=== PATIENT | female | born 1955 | race Caucasian/White ===

== ENCOUNTER 2019-05-03 12:49 | Emergency (ER) | payer OTHER ==
[2019-05-03 13:26] VITALS: BP 127/66
--- NOTE | 2019-05-03 13:31 | UC ---
Eye Complaint HPI - HPI Summary HPI Summary: 63 yo female presents with RIGHT eye issue. She tells me that she has a history of mild floaters in her right eye. Yesterday she noticed a significant increase in the amount of floaters in her right eye. She was also having some flashes of bright light out the lateral aspect of the eye. Today she feels that there are blurry lines in the eye and she has noticed some flashes of light again today. She wears glasses, but has not seen an eye doctor in many years. She denies injury to the eye, headache, dizziness, or eye pain. - History of Current Complaint Chief Complaint: Carla Stated Complaint: RT EYE Time Seen by Provider: 05/03/19 13:26 Hx Obtained From: Patient Onset/Duration: Sudden Onset Severity Currently: None Pain Intensity: 0 - Allergies/Home Medications Allergies/Adverse Reactions: Allergies Allergy/AdvReac Type Severity Reaction Status Date / Time amoxicillin Allergy Hives Verified 05/03/19 13:26 Home Medications: Home Medications Acetaminophen [Arthritis Pain Relief] 1,300 mg PO BID 05/03/19 [History Confirmed 05/03/19] Albuterol HFA INHALER* [Ventolin HFA Inhaler*] 2 puff INH DAILY PRN 05/03/19 [ History Confirmed 05/03/19] Anastrozole [Arimidex] 1 tab PO DAILY 05/03/19 [History Confirmed 05/03/19] Aspirin 81 mg PO DAILY 05/03/19 [History Confirmed 05/03/19] Atorvastatin* [Lipitor*] 80 mg PO 1700 05/03/19 [History Confirmed 05/03/19] Biotin 1 mg PO DAILY 05/03/19 [History Confirmed 05/03/19] Calcium Carb/Vitamin D3/Vit K1 [Calcium + D Soft Chewable Tab] 1 tab PO BID [History Confirmed 05/03/19] Famotidine 10 mg PO DAILY 05/03/19 [History Confirmed 05/03/19] Fluticasone Propionate [Flonase Allergy Relief] 1 spray INH DAILY 05/03/19 [ History Confirmed 05/03/19] Lactase [Dairy Digest] 1 tab PO DAILY 05/03/19 [History Confirmed 05/03/19] Loratadine [Claritin] 10 mg PO DAILY 05/03/19 [History Confirmed 05/03/19] Metoprolol Tartrate [Lopressor] 25 mg PO BID 05/03/19 [History Confirmed ] Sertraline HCl [Zoloft] 200 mg PO DAILY 05/03/19 [History Confirmed 05/03/19] Trazodone HCl 125 mg PO QPM PRN 05/03/19 [History Confirmed 05/03/19] PMH/Surg Hx/FS Hx/Imm Hx Endocrine History: Dyslipidemia Cardiovascular History: Cardiac Disease, Hypertension GI/ History: Gastroesophageal Reflux Psychological History: Anxiety, Depression - Surgical History Surgical History: Yes Surgery Procedure, Year, and Place: LEFT BREAST LUMPECTOMY 2013,2016 LEFT BREAST BIOPSY. cardiac stent 2008 - Family History Known Family History: Positive: Cardiac Disease, Hypertension - Social History Lives: With Family Alcohol Use: None Substance Use Type: None Smoking Status (MU): Never Smoked Tobacco Review of Systems All Other Systems Reviewed And Are Negative: Yes Constitutional: Positive: Negative Skin: Positive: Negative Eyes: Positive: Other - Right eye flashes and floaters ENT: Positive: Negative Respiratory: Positive: Negative Cardiovascular: Positive: Negative Neurovascular: Positive: Negative Neurological: Positive: Negative Psychological: Positive: Negative Physical Exam - Summary Physical Exam Summary: GENERAL: NAD. WDWN. No pain distress. SKIN: No rashes, sores, lesions, or open wounds. HEENT: Head: AT/NC Eyes: EOM intact. PERRLA. Conjunctiva clear without inflammation or discharge. Nose: Nasal mucosa pink and moist. NTTP maxillary and frontal sinus. CHEST: CTAB. No r/r/w. No accessory muscle use. Breathing comfortably and in no distress. CV: RRR. Without m/r/g. Pulses intact. Cap refill <2seconds NEURO: Alert. PSYCH: Age appropriate behavior. Triage Information Reviewed: Yes Vital Signs: Initial Vital Signs Temp 98.5 F 05/03/19 13:18 Pulse 58 05/03/19 13:18 Resp 18 05/03/19 13:18 BP 127/66 05/03/19 13:18 Pulse Ox 97 05/03/19 13:18 Vital Signs Reviewed: Yes Eye Complaint Course/Dx - Course Course Of Treatment: Her symptoms are concerning for a retinal detachment. I called Dr. Herrera of ophthalmology and they are able to see pt at 2:15pm today. Discussed this with pt and she will attend this appt today for further eval and treatment. - Differential Dx/Diagnosis Provider Diagnosis: Vitreous floaters of right eye Discharge - Sign-Out/Discharge Documenting (check all that apply): Patient Departure All imaging exams completed and their final reports reviewed: No Studies - Discharge Plan Condition: Stable Disposition: HOME Referrals: Rosalie Babin MD [Primary Care Provider] - Justen Herrera MD [Medical Doctor] - 05/03/19 2:15 pm Additional Instructions: Your symptoms sounds like you may have a retinal detachment. I have made you an appointment with Dr. Herrera at the address below. He can see you at 2:15pm today. - Billing Disposition and Condition Condition: STABLE Disposition: Home
== END 2019-05-03 13:41 | disposition home or self-care (01) ==
LOC: UCEAST 12:49
DX: H43.391 Other vitreous opacities, right eye (principal); K21.9 Gastro-esophageal reflux disease without esophagitis; E78.5 Hyperlipidemia, unspecified; I10 Essential (primary) hypertension; F41.9 Anxiety disorder, unspecified; F32.9 Major depressive disorder, single episode, unspecified
CPT/HCPCS: 99211; G0463

== ENCOUNTER 2019-05-27 06:46 | Inpatient (IN) | payer OTHER ==
--- NOTE | 2019-05-24 18:43 | HP ---
HISTORY AND PHYSICAL: DATE OF ADMISSION/SURGERY: 05/27/19 DATE OF OFFICE VISIT: 05/24/19 SURGEON: Ping Reyes MD.* (DICTATED BY VANDANA CERNA) PROCEDURE: Left total knee arthroplasty. CHIEF COMPLAINT: Left knee pain. HISTORY OF PRESENT ILLNESS: Mrs. Bowen is a 63-year-old female with continued complaints of left knee pain. She has failed conservative treatment and elected to proceed with a left total knee arthroplasty. PAST MEDICAL HISTORY: 1. History of an FL. 2. Coronary artery disease. 3. Anxiety. 4. Depression. 5. History of breast cancer. 6. Hypertension. 7. Asthma. 8. IBS. PAST SURGICAL HISTORY: 1. Stent placement. 2. Rotator cuff repair. 3. Right knee arthroscopy. 4. Lumpectomy. CURRENT MEDICATIONS: 1. Aspirin 81 mg a day. 2. Arimidex 1 mg a day. 3. Calcium with vitamin D. 4. Claritin. 5. Flonase. 6. Lipitor 80 mg at bedtime. 7. Metoprolol 25 mg twice a day. 8. ProAir inhaler. 9. Zoloft 100 mg 2 tabs daily. 10. Trazodone 50 mg at bedtime. 11. Famotidine 40 mg a day. 12. Tylenol twice a day. 13. Atorvastatin calcium 80 mg a day. 14. Lomotil 2.5/0.025 every 4 hours as needed. ALLERGIES: AMOXICILLIN and LACTOSE. FAMILY HISTORY: Cancer, Parkinson disease, and stroke. SOCIAL HISTORY: She is a 63-year-old female. She lives alone. She does not smoke or use drugs. REVIEW OF SYSTEMS: A complete 14-point review of systems was reviewed with the patient. It was positive for some occasional palpitation. She denies history of DVT, PE, hepatitis, HIV, or anesthesia problems. PHYSICAL EXAMINATION GENERAL: She is well developed, well nourished, in no acute distress. VITAL SIGNS: She stands 5 feet 3 inches tall, weighs 199 pounds. Her blood pressure is 144/86, heart rate 60. HEENT: Normocephalic, atraumatic. NECK: Supple. No palpable lymph nodes. PULMONARY: Lungs are clear to auscultation bilaterally. CARDIO: Regular rate and rhythm. Strong S1, S2. ABDOMEN: Soft, nontender, nondistended. NEUROLOGICAL: She is alert and oriented x3. MUSCULOSKELETAL: Left lower extremity, the skin is intact. There are no open wounds or abrasions. There is a moderate effusion of the left knee joint. There is tenderness along the medial joint line. Range of motion is 5 to 120 degrees of flexion with extensive patellofemoral crepitus. Her calf is soft and nontender. She is able to dorsiflex and plantar flex and has 2+ dorsalis pedis pulse. ASSESSMENT AND PLAN: Ms. Bowen is a 63-year-old female with end-stage osteoarthritis of the left knee. She has failed conservative treatment and elected to proceed with a left total knee arthroplasty. The surgery is scheduled for 05/27/[address] Reyes discussed the risks and benefits of the surgery at today's visit and all of her questions were answered. She will follow up with Dr. Reyes 2 weeks after the surgery. Postoperatively, we will place her on Eliquis as well as her 81 mg aspirin for DVT prophylaxis. VANDANA CERNA [id number]/[facility] #: [id number] MTDFrank
[~2019-05-27 06:46] MED LIST: Tranexamic Acid 1,000 MG in NS 0.9% 50 ML* (outpatient use) IV SCH
--- OUTSIDE RECORDS SUMMARY | 2019-05-27 06:49 | XMS REPORT | Continuity of Care Document ---
:1955 External Reference #:[id number] Author Name Josefa Randall Care Team Providers Name Role Phone Rosalie Babin MD Primary Care Physician Unavailable Payers Date Identification Numbers Payment Provider Subscriber Policy Number: [id number] [employer] Name: [id number] [address] PayID: [id number] [place] [address] Problems Active Problems Provider Date Morbid obesity Ping Reyes M.D. Onset: 03/29/2019 Localized, primary osteoarthritis Ping Reyes M.D. 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 Tablets Atorvastatin Calcium 1 by mouth every Unknown 80mg day Tablets Tylenol 8 Hour 1 by mouth before Unknown Arthritis Pain every infusion 650mg Tablets ER Famotidine 1 by mouth every Unknown 40mg Tablets day Trazodone HCL one and a half Unknown 50mg tablets at bedtime Tablets as needed Zoloft 2 by mouth every Unknown 100mg Tablets day Proair HFA 2 puffs by mouth Unknown 108(90Base) every 4 hours as mcg/Act Aerosol needed Nystatin topically twice a Unknown [id number]/GM day as needed Cream Metoprolol Tartrate Unknown 25mg Tablets Lipitor 1 by mouth every Unknown 80mg Tablets night at bedtime Flonase Allergy Relief spray 1 spray in Unknown each nostril twice 50mcg/Act Suspension daily Claritin 1 by mouth every Unknown 10mg Tablets day as needed Calcium + D twice daily Unknown Tablets Arimidex 1 by mouth every Unknown 1mg Tablets day Aspirin 1 by mouth every Unknown 81mg Tablets DR day History Medications Alosetron HCL 1 by mouth twice a day Unknown - Unknown 0.5mg Tablets Alprazolam Unknown - Unknown 0.5mg Tablets Lactase Enzyme Fast Acting Unknown - 05/23/2019 9000Unit Tablets Pepcid Unknown - Unknown 40mg Tablets Probiotic 1 by mouth every day Unknown - 03/30/2019 Capsules Xanax by mouth three times a Unknown - 03/30/2019 0.5mg Tablets day as needed Vital Signs Date Vital Result Comment 05/24/2019 11:13am Height 63 inches 5'3" Weight 199.00 lb Heart Rate 60 /min BP Systolic 142 mmHg BP Diastolic 86 mmHg BMI (Body Mass Index) 35.2 kg/m2 03/29/2019 10:23am Height 63 inches 5'3" Weight 200.00 lb Heart Rate 60 /min Body Temperature 97.3 F O2 % BldC Oximetry 88 % BMI (Body Mass Index) 35.4 kg/m2 10/02/2016 8:23am Heart Rate 66 /min BP Systolic 118 mmHg BP Diastolic 84 mmHg Respiratory Rate 16 /min Body Temperature 97.6 F 09/25/2016 9:46am Height 63 inches 5'3" Weight 194.00 lb Heart Rate 72 /min BP Systolic 138 mmHg BP Diastolic 80 mmHg Respiratory Rate 18 /min Body Temperature 97.5 F BMI (Body Mass Index) 34.4 kg/m2 Results Test Date Facility Test Result H/L Range Note Inr/Protime 05/14/2019 [facility] Inr 1.06 N 0.82-1.09 1, [address] [place] [address] [phone] Laboratory test 05/14/2019 [facility] Partial 38.7 seconds High 26.0-38.[address] [place] [address] PTT [phone] Type & Screen 05/14/2019 [facility] Patient A Positive [address] [place] [address] [phone] Antibody Screen NEGATIVE Urine Culture And 05/14/2019 [facility] Urine Culture SEE RESULT [address] [place] [address] [phone] Laboratory test 10/02/2016 [facility] Surgical SEE RESULT 4 , [address] Pathology BELOW [place], [place] [address] [phone] 1 PAIN IN LEFT KNEE, EFFUSION, LEFT KNEE, BILATERAL 2 Standard intensity warfarin therapeutic range: 2.0-3.0 High intensity warfarin therapeutic range: 2.5-3.5 3 SEE RESULT BELOW Name: KAYLEE GE : [address]: Ping Reyes MD Acct: [id number] Unit: [id number] AGE: 63 Location: LOCATED WITHIN [facility] Re05/14/19 SEX: F Status: REG REF SPEC: [id number] KENNETH: 05/14/19-[address] [facility] [address]: Ping Reyes MD REQ: [id number] RECD: 05/14/19 STATUS: MARGRET DISLA DR: Cirilo Babin MD _ SOURCE: URINE SPDESC: ORDERED: Urine Culture QUERIES: Urine Source: Random Procedure Result Reported Site Urine Culture Final 05/15/19- 1324 ML No growth of clinically significant organisms * ML - Main Lab . END OF REPORT DEPARTMENT OF PATHOLOGY, [address] [place] [address] Curly Powell M.D. Director [facility] # [id number] SEE RESULT BELOW Name: KAYLEE GE : [address]: Daniel Cooney MD Acct: [id number] Unit: [id number] AGE: 61 Location: [facility] Re10/02/16 SEX: F Status: REG REF SPEC: [id number] KENNETH: 10/02/16-[address] [facility] [address]: Daniel Cooney MD REQ: [id number] RECD: 10/02/16 STATUS: SOUT _ ORDERED: LEVEL IV COMMENTS: [id number] FINAL DIAGNOSIS Breast, left, biopsy: -- Fibroadipose tissue with pseudocyst (6 mm). -- No evidence of neoplasia. CLINICAL HISTORY History of breast cancer two years ago. GROSS DESCRIPTION The specimen is received in formalin labeled, Left Breast Mass, and consists of a 2.5 x 2.0 x 0.5 cm yellow irregular portion of fibrofatty soft tissue. Sectioning reveals a 0.6 x 0.4 x 0.4 cm cyst. The remaining cut surface consists of yellow lobulated adipose tissue. The specimen is inked, serially sectioned and entirely submitted in two cassettes. Signed (signature on file) Fernanda Ramirez MD [id number] END OF REPORT * ML=Testing performed at Main Lab DEPARTMENT OF PATHOLOGY, [address] [place] [address] Curly Powell M.D. Director [facility] # [id number] Procedures Date Code Description Status 10/02/2016 17767 Biopsy Breast Incisional Completed 09/05/2016 [id number] Mammogram Completed Encounters Type Date Location Provider Dx Diagnosis Office Visit 03/29/2019 Orthopedic Ping Reyes, M25.561 Pain in right 10:00a [facility] knee M25.562 Pain in left knee M25.461 Effusion, right knee M25.462 Effusion, left knee M17.0 Bilateral primary osteoarthritis of knee E66.01 Morbid (severe) obesity due to excess calories Office Visit 10/29/2018 11:00a [facility] Irma Figueroa, L81.8 Other specified MD disorders of pigmentation L82.1 Other seborrheic keratosis D22.5 Melanocytic nevi of trunk Z80.8 Family history of malignant neoplasm of organs or systems Office Visit 09/25/2016 9:30a Surgical Daniel Chavez N63 Unspecified lump [facility] Marisela Cooney in breast Plan of Treatment Future Appointment(s):06/09/2019 11:15 am - Ping Reyes M.D. at [facility]05/27/2019 10:00 am - [facility] [place] at [facility]05/27/2019 10:00 am - VANDANA Raymond at [facility]05/27/2019 10:00 am - VANDANA Vicente at [facility]05/27/2019 10:00 am - Ping Eric, M.D. at [facility]11/19/2019 11:00 am - Irma Figueroa MD at [facility] Qwupeuhpvpr17/08/2019 - Ping Reyes M.D.M25.562 Pain in left kneeFollow up:Follow up: 2 weeks after skpsufgW65.462 Effusion, left kneeM17.0 Bilateral primary osteoarthritis of knee
--- OUTSIDE RECORDS SUMMARY | 2019-05-27 06:49 | XMS REPORT | Continuity of Care Document ---
:1955 External Reference #:[id number] Author Name Justen Herrera M.D. Address [address] [place] [address] Care Team Providers Name Role Phone Rosalie Babin M.D. Primary Care Physician Unavailable Payers Date Identification Numbers Payment Provider Subscriber Policy Number: [id number] [employer] Medicaid [place] Nguyen Bowen PayID: [id number] [address] [place] [address] Problems Active Problems Provider Date Coronary atherosclerosis Onset: Myocardial infarction Onset: Note: 2008 Malignant neoplasm of female breast Onset: Allergic rhinitis Onset: Epiretinal membrane Justen Herrera M.D. Onset: 05/03/2019 Vitreous degeneration Justen Herrera M.D. Onset: 05/03/2019 Combined form of senile cataract Justen Herrera M.D. 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 Work Status Retired ETOH Use Denies alcohol use Tobacco Use Start: Unknown Patient has never smoked Smoking Status Reviewed: 05/17/19 Patient has never smoked Allergies, Adverse Reactions, Alerts Active Allergies Reaction Severity Comments Date Amoxicillin 05/03/2019 Medications Active Medications SIG Qnty Indications Ordering Provider Date Albuterol Sulfate HFA Take 2 Puffs By Unknown Mouth Every 4 108(90Base) mcg/Act Hours as Needed Aerosol For Wheeze Anastrozole Take 1 Tablet By Unknown 1mg Tablets Mouth Every Day Trazodone HCL Take 1 And 1/2 Unknown 50mg Tablets By Mouth Tablets Every Bedtime. Sertraline HCL Take 2 Tabs By Unknown 100mg Mouth Daily. Tablets Famotidine Unknown 40mg Tablets Metoprolol Tartrate McClintic, 25mg Cirilo Antonio Tablets Atorvastatin Calcium Take 1 Tab By Unknown 80mg Mouth Daily. Tablets Tylenol 8 Hour Unknown 650mg Tablets ER Fluticasone Propionate Unknown 50mcg/Act Suspension Calcium Unknown Carbonate-Vitamin D [id number] Tablets Loratadine 1 daily in am Unknown 10mg Capsules Biotin Unknown 1mg Capsules Aspirin [address] Procedures Date Code Description Status 05/03/2019 59953 Scanning Computerized Opthalmic Diagnostic Posterior Seg Completed Retina 05/03/2019 41153 New Patient Comprehensive Exam Completed Encounters Type Date Location Provider Dx Diagnosis Office Visit 05/17/2019 Justen Herrera, Pam Bonilla, H43.811 Vitreous 9:00a , pc Robin degeneration, right eye Plan of Treatment Future Appointment(s):09/02/2019 10:00 am - Justen Herrera M.D. at Justen Herrera MD, 05/17/2019 - Pam Bonilla O.D.H43.811 Vitreous degeneration, right eyeComments:Smoking can increase the risk of developing or worsening any eye related disease, as well as affect your overall health. If you are a smoker , we strongly recommend that you quit.If you are not a smoker, we strongly recommend that you do not start. You have a Posterior Vitreous Detachment in your right eye. If you have any changes in your floaters or flashing lights, please contact this office.Follow up: SCHEDULED
--- OUTSIDE RECORDS SUMMARY | 2019-05-27 06:49 | XMS REPORT | Continuity of Care Document ---
:1955 External Reference #:[id number] Author Name Pam Bonilla O.D. Address [address] [place] [address] Care Team Providers Name Role Phone Rosalie Babin M.D. Primary Care Physician Unavailable Payers Date Identification Numbers Payment Provider Subscriber Policy Number: [id number] [employer] Medicaid [place] Nguyen Bowen PayID: [id number] 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 Tablets Tylenol 8 Hour Unknown 650mg Tablets ER Fluticasone Propionate Unknown 50mcg/Act Suspension Calcium Unknown Carbonate-Vitamin D [id number] Tablets Loratadine 1 daily in am Unknown 10mg Capsules Biotin Unknown 1mg Capsules Aspirin [address] Procedures Date Code Description Status 05/03/2019 33324 Scanning Computerized Opthalmic Diagnostic Posterior Seg Completed Retina 05/03/2019 34696 New Patient Comprehensive Exam Completed Plan of Treatment Future Appointment(s):09/02/2019 10:00 am [...]
--- OUTSIDE RECORDS SUMMARY | 2019-05-27 06:49 | XMS REPORT | Continuity of Care Document ---
:1955 External Reference #:[id number] Author Name Justen Herrera M.D. Address [address] [place] [address] Care Team Providers Name Role Phone Rosalie Babin M.D. Primary Care Physician Unavailable Payers Date Identification Numbers Payment Provider Subscriber Policy Number: [id number] [employer] Medicaid [place] Nguyen Bowen PayID: [id number] [place] [address] Problems Active Problems Provider Date Coronary atherosclerosis Onset: Myocardial infarction Onset: Note: 2008 Malignant neoplasm of female breast Onset: Allergic rhinitis Onset: Combined form of senile cataract Justen Herrera M.D. Onset: 05/03/2019 Vitreous degeneration Justen Herrera M.D. Onset: 05/03/2019 Epiretinal membrane Justen Herrera M.D. 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 Work Status Retired ETOH Use Denies alcohol use Tobacco Use Start: Unknown Patient has never smoked Smoking Status Reviewed: 05/03/19 Patient has never smoked Allergies, Adverse Reactions, [...] Unknown 50mcg/Act Suspension Calcium Unknown Carbonate-Vitamin D [id number] Tablets Loratadine 1 daily in am Unknown 10mg Capsules Biotin Unknown 1mg Capsules Aspirin 81 Unknown 81mg Tablets Plan of Treatment 05/03/2019 - Justen Herrera M.D.H31.425 Puckering of macula, bilateralComments :Smoking can increase the risk of developing or worsening any eye related disease, as well as affect your overall health. If you are a smoker, we strongly recommend that you quit.If you are not a smoker, we strongly recommend that you do not start. A Macular Pucker is a wrinkling of the retina tissue. It can cause distortion in your vision. Please call the office if you notice a decrease or new distortion in your vision before then.Follow up:4 Month Follow Up Diagnostic Refraction OCT MAC You can expect to have your eyes dilated at your next visit. If Dr. Herrera orders any additional testing, it may require extra time. We recommend that you bring sunglasses, as dilation drops often make you light sensitive until they wear off. We always recommend you bring someone to drive you home if you are uncomfortable driving with your eyes dilated.If you have any questions before your next visit, feel free to call our office at .h43.811 Vitreous degeneration, right eyeComments:You have a Posterior Vitreous Detachment in your right eye. If you have any changes in your floatersor flashing lights, please contact this office.Follow up:2 Week Follow Up MC OR TS DILATE OD ONLYZ38.994 Combined forms of age-related cataract , bilateralComments:You have been diagnosed with cataracts. If you are happy with your vision as it is now, then we willsee you at your next scheduled appointment. If you feel like your vision is getting worse before your scheduled appointment, please call [facility] at [phone].
--- OUTSIDE RECORDS SUMMARY | 2019-05-27 06:49 | XMS REPORT | Continuity of Care Document ---
:1955 External Reference #:[id number] Author Name Adonis Atkins Care Team Providers Name Role Phone Rosalie Babin M.D. Primary Care Physician Unavailable Payers Date Identification Numbers Payment Provider Subscriber Policy Number: [id number] [employer] [place] Nguyen Bowen PayID: [id number] 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 at [facility], 05/17/2019 9:00 am - Pam Bonilla O.D. at [facility], 05/03/2019 - Justen Herrera M.D.H35.373 Puckering of macula, bilateralComments:Smoking can increase the risk of developing or [...] new distortion in your vision before then.Follow up: 4 Month Follow Up Diagnostic Refraction OCT MAC [...] feel free to call our office at .V91.293 Vitreous degeneration, right eyeComments:You have a Posterior Vitreous Detachment in your right eye. If you have any changes in your floatersor flashing lights, please contact this office.Follow up:2 Week Follow Up MC OR TS DILATE OD ONLYH25.813 Combined forms of age-related cataract, bilateralComments:You have been diagnosed with cataracts. If you are happy with your vision as it is now, then we willsee you at your next scheduled appointment. If you feel like your vision is getting worse before your scheduled appointment, please call [facility] at [phone].
--- OUTSIDE RECORDS SUMMARY | 2019-05-27 06:49 | XMS REPORT | Continuity of Care Document ---
:1955 External Reference #:[id number] Author Name Lashaun Porras Care Team Providers Name Role Phone Rosalie Babin MD Primary Care Physician Unavailable Payers Date Identification Numbers Payment Provider Subscriber Policy Number: [id number] [employer] Name: [id number] [address] PayID: [id number] [place] [address] Problems Active Problems Provider Date Morbid obesity Ping Reyes M.D. Onset: 03/29/2019 Localized, primary osteoarthritis Ping Reyes M.D. Onset: 03/29/2019 Family History Date Family Member(s) Observation Comments General Stroke General Cancer General Parkinson's Disease Social History Type Date Description Comments Sex Unknown Lives With Alone Occupation Telesales Representative ETOH Use Denies alcohol use Tobacco Use Start: Unknown Patient has never smoked Smoking Status Reviewed: 05/24/19 Patient has never smoked Exercise Type/Frequency Exercises sporadically Allergies, Adverse Reactions, Alerts Active Allergies Reaction Severity Comments Date Amoxicillin 09/23/2016 Lactose (Allergy) 09/23/2016 Medications Active Medications SIG Qnty Indications Ordering Provider Date Digestive Advantage once daily Ping Reyes 05/24/2019 Meredith Wu M.D. Formula Capsules Lomotil every 4 hours as [...] Aerosol needed Nystatin topically twice a Unknown [id number] day as needed Cream Metoprolol Tartrate Unknown [...] Test Result H/L Range Note Inr/Protime 05/14/2019 [facility] Inr 1.06 N 0.82-1.09 1, [address] [place] [address] [phone] Laboratory test 05/14/2019 [facility] Partial 38.7 seconds High 26.0-38.[address] [place] [address] PTT [phone] Type & Screen 05/14/2019 [facility] Patient A Positive [address] [place] [address] [phone] Antibody Screen NEGATIVE Urine Culture And 05/14/2019 [facility] Urine Culture SEE RESULT [address] [place] [address] [phone] Laboratory test 10/02/2016 [facility] Surgical SEE RESULT 4 , [address] [place] [address] [phone] 1 PAIN IN LEFT KNEE, EFFUSION, LEFT KNEE, BILATERAL 2 Standard intensity warfarin therapeutic range: 2.0-3.0 High intensity warfarin therapeutic range: 2.5-3.5 3 SEE RESULT BELOW Name: KAYLEE GE : [address]: Ping Reyes MD Acct: [id number] Unit: [id number] AGE: 63 Location: [facility] Re05/14/19 SEX: F Status: REG REF SPEC: [id number] KENNETH: 05/14/19-[address] [facility] [address]: Ping Reyes MD REQ: [id number] RECD: 05/14/19 STATUS: MARGRET DISLA DR: Cirilo Babin MD _ SOURCE: URINE SPDESC: ORDERED: Urine Culture QUERIES: Urine Source: Random Procedure Result Reported Site Urine Culture Final 05/15/19- 1324 ML No growth of clinically significant organisms * ML - Main Lab . END OF REPORT DEPARTMENT OF PATHOLOGY, [address] [place] [address] Curly Powell M.D. Director [facility] # [id number] SEE RESULT BELOW Name: KAYLEE GE : [address]: Daniel Cooney MD Acct: [id number] Unit: [id number] AGE: 61 Location: [facility] Re10/02/16 SEX: F Status: REG REF SPEC: [id number] KENNETH: 10/02/16-[address] [facility] [address]: Daniel Cooney MD REQ: [id number] RECD: 10/02/16 STATUS: SOUT _ ORDERED: LEVEL IV COMMENTS: [id number] FINAL DIAGNOSIS Breast, left, biopsy: -- Fibroadipose [...] Signed (signature on file) Fernanda Ramirez MD [id number] END OF REPORT * ML=Testing performed at Main Lab DEPARTMENT OF PATHOLOGY, [address] [place] [address] Curly Powell M.D. Director [facility] # [id number] Procedures Date Code Description Status 10/02/2016 19511 Biopsy Breast Incisional Completed 09/05/2016 [id number] Mammogram Completed Encounters Type Date Location Provider Dx Diagnosis Office Visit 03/29/2019 Orthopedic Ping Reyes, M25.561 Pain in right 10:00a [facility] knee M25.562 Pain in left knee M25.461 Effusion, right knee M25.462 Effusion, left knee M17.0 Bilateral primary osteoarthritis of knee E66.01 Morbid (severe) obesity due to excess calories Office Visit 10/29/2018 11:00a [facility] Dermatology Irma Figueroa, L81.8 Other specified MD disorders of pigmentation L82.1 Other seborrheic keratosis D22.5 Melanocytic nevi of trunk Z80.8 Family history of malignant neoplasm of organs or systems Office Visit 09/25/2016 9:30a Surgical Daniel Chavez N63 Unspecified lump [facility] Marisela Cooney in breast Plan of Treatment Future Appointment(s):05/27/2019 10:00 am - [facility] [place] at [facility]05/27/2019 10:00 am - VANDANA Raymond at [facility]05/27/2019 10:00 am - VANDANA Vicente at [facility]05/27/2019 10:00 am - Ping Reyes M.D. at [facility]11/19/2019 11:00 am - Irma Figueroa MD at [facility] Lufilzfveft58/08/2019 - Ping Reyes M.D.M25.562 Pain in left kneeFollow up:Follow up: 2 weeks after bbltiziQ63.462 Effusion, left kneeM17.0 Bilateral primary osteoarthritis of knee
[2019-05-27] MEDS ORDERED: Clindamycin 900 MG IVPREMIX(* 900 MG/50 ML SDV IV ONE (07:39)
[2019-05-27] MEDS ORDERED: Buffered Lidocaine 1% SYRIN* 1 ML/SYRINGE INTRADERM ONE (07:47)
[2019-05-27] MEDS ORDERED: Propofol* 10 MG/ML 20 ML BTL ONE ×2 (07:51→11:36)
[2019-05-27] MEDS ORDERED: Lidocaine 2% PF * 5 ML VIAL ONE (07:51)
[2019-05-27] MEDS ORDERED: Propofol* 500 MG/50 ML BTL ONE (07:51)
[2019-05-27] MEDS ORDERED: Dexmedetomidine* 200 MCG/2 ML 2 ML VIAL ONE (07:52)
[2019-05-27] MEDS ORDERED: KETAMINE HCL* 50 MG/ML 10 ML VIAL ONE (07:52)
[2019-05-27] MEDS ORDERED: ROPIVACAINE 5 MG/ML 30 ML BTL (0.5%) ONE ×3 (07:53→09:44)
[2019-05-27] MEDS ORDERED: fentaNYL* 50 MCG/ML 2 ML VIAL (100 MCG VIAL) ONE (08:00)
[2019-05-27] MEDS ORDERED: Midazolam* 1 MG/ML 2 ML VIAL (2 MG) ONE (08:00)
[2019-05-27] MEDS ORDERED: Rocuronium* 10 MG/ML VIAL ONE (08:12)
[2019-05-27] MEDS ORDERED: Bupivacaine 0.5% SDV PF* 30ML VIAL ONE (09:50)
[2019-05-27] MEDS ORDERED: Dexamethasone IV* 4 MG/ML 1 ML (4 MG) ONE (10:14)
[2019-05-27] MEDS ORDERED: Ketorolac INJ* 30 MG/ML 1 ML VIAL IV PRN (10:43)
[2019-05-27] MEDS ORDERED: oxyCODONE TAB* 5 MG TAB PO PRN (10:43)
[2019-05-27] MEDS ORDERED: Ondansetron INJ* 2 MG/ML VIAL IV PRN (10:43)
[2019-05-27] MEDS ORDERED: HYDROmorphone INJ1* 1 MG/ML SYRINGE IV PRN (10:43)
[2019-05-27] MEDS ORDERED: Naloxone* 0.4 MG/ML 1 ML VIAL IV PRN (10:43)
[2019-05-27] MEDS ORDERED: Acetaminophen TAB* 325 MG PO PRN ×2 (10:43→12:27)
[2019-05-27] MEDS ORDERED: diPHENhydraMINE IV* 50 MG/ML 1 ml VIAL (BENADRYL) IV PRN (12:27)
[2019-05-27] MEDS ORDERED: Bisacodyl SUPP* 10 MG SUPP PR PRN (12:27)
[2019-05-27] MEDS ORDERED: oxyCODONE/Acetamin 5/325 MG* TAB PO PRN (12:27)
[2019-05-27] MEDS ORDERED: Magnesium Hydroxide LIQ* 30 ML UDC PO PRN (12:27)
[2019-05-27] MEDS ORDERED: Ondansetron INJ* 2 MG/ML VIAL ONE (13:11)
[2019-05-27] MEDS ORDERED: Ketorolac INJ* 30 MG/ML 1 ML VIAL ONE (13:27)
[2019-05-27] MEDS ORDERED: Acetaminophen TAB* 325 MG ONE (14:19)
[2019-05-27] MEDS: Lactated Ringers 1000 ML Bag* 1,000 ML IV SCH (14:47)
--- NOTE | 2019-05-27 15:06 | PN ---
Progress Note - Progress Note Date of Service: 05/27/19 Note: Patient resting comfortably in bed breathing easily. She denies CP, SOB or calf pain. She is able to DF/PF left ankle and has present, but altered sensation in the digits. 2+ DP pulse appreciated. Patient encouraged to attend to her pain so she can best perform PT. We will continue to follow.
--- NOTE | 2019-05-27 16:25 | CONS ---
[facility] MEDICINE CONSULTATION REPORT: DATE OF CONSULT: 05/27/19 PROVIDER: Lala Armenta NP. ATTENDING PHYSICIAN: Dr. Reyes. CONSULTING PHYSICIAN: Dr. Joanie Jerome (dictated by Lala Armenta NP). REASON FOR CONSULT: Co-management of chronic medical conditions. HISTORY OF PRESENT ILLNESS: Ms. Bowen is a 63-year-old female with a past medical history significant for OR in 2008, CAD, anxiety, depression, history of breast cancer, hypertension, asthma, and irritable bowel syndrome, who presented to [facility] for an elective left total knee arthroplasty with Dr. Reyes. Please see dictated H and P from VANDANA Pedro, for complete details. In brief, the patient had ongoing pain, failed conservative measures; therefore, opted for an elective left total knee arthroplasty with Dr. Reyes. In the immediate postoperative period, the patient has no complaints of pain at this time. The patient denies any preoperative fever or chills, nausea, vomiting, diarrhea, or abdominal pain. She denies any recent illnesses. She currently denies any chest pain or shortness of breath. Denies any nausea, vomiting, or diarrhea. Denies any fever or chills. Denies any urinary frequency, urgency, or pain with urination. Due to her chronic medical conditions, we were asked to help co-manage her care during her hospitalization. PAST MEDICAL HISTORY: Significant for: 1. History of OR, status post stent in 2008. 2. CAD. 3. Anxiety. 4. Depression. 5. History of breast cancer. 6. Hypertension. 7. Asthma. 8. Irritable bowel syndrome. PAST SURGICAL HISTORY: 1. Cardiac stent placement in 2008 in the RCA. 2. Rotator cuff surgery. 3. Right knee arthroscopy. 4. Left breast lumpectomy. HOME MEDICATIONS: Include: 1. Alprazolam 0.25 mg p.o. t.i.d. p.r.n. anxiety - rarely takes this medication. 2. Aspirin 81 mg p.o. daily. 3. Arimidex 1 mg p.o. daily. 4. Calcium with vitamin D 1 tablet p.o. daily. 5. Claritin 10 mg p.o. daily. 6. Flonase daily. 7. Metoprolol 25 mg p.o. b.i.d. 8. ProAir 2 puffs q.6 hours as needed for shortness of breath. 9. Zoloft 200 mg daily. 10. Trazodone 75 mg at bedtime. 11. Famotidine 40 mg p.o. daily. 12. Tylenol 500 mg twice daily. 13. Atorvastatin 80 mg p.o. daily. 14. Lomotil 2.5/0.025 q.4 hours as needed for diarrhea p.r.n. ALLERGIES: 1. AMOXICILLIN. 2. LACTOSE. 3. MOLD. FAMILY HISTORY: Sister with breast cancer. Father with rectal cancer. Mother with appendix cancer. Brother with melanoma. Maternal grandmother with a stroke. No other reported history of coronary artery disease. No reports of diabetes. SOCIAL HISTORY: The patient lives alone. She denies any smoking, alcohol, or illicit drug use. She is a full code. Surrogate decision maker in the event she is unable to make her own decisions is her sister. REVIEW OF SYSTEMS: An 11-point review of systems was completed. All pertinent positives were mentioned in the HPI. Otherwise were negative. PHYSICAL EXAM: General: At this time, Ms. Bowen is a 63-year-old female. She is resting comfortably on the stretcher in PACU. She is drowsy, but alert and oriented. Vital Signs: Blood pressure 120/70, temperature 97.9, heart rate is 53, respirations are 14, O2 saturation 100% on room air. HEENT: Head is atraumatic, normocephalic. Eyes: EOMs are intact. Sclerae anicteric and not pale. Oral mucosa appeared to be moist. Neck is supple. Lungs are clear to auscultation bilaterally. No wheezes, rales, or rhonchi. Cardiac: S1, S2. Regular rate and rhythm. She is bradycardic. No murmurs, rubs, or gallops. Abdomen is soft and nontender. Bowel sounds are present x4. Extremities: Pedal pulses are +2 bilaterally. Sensation is intact to bilateral lower extremities. Radial pulses +2. Neurologic: She is awake, alert, oriented x3. Speech is clear. Thought process is intact. There are no gross focal deficits. DIAGNOSTIC STUDIES/LAB DATA: From 05/14/19: INR 1.06, APTT was 37.7. CBC from 04/28/19: WBCs 5.96, RBCs 4.43, hemoglobin 13.2, hematocrit was 41, platelet count was 204. Sodium was 142, potassium 3.8, chloride 104, carbon dioxide was 29, calcium 9.4, albumin 4.4, BUN was 20, creatinine 0.9, glucose was 101. AST was 37, ALT 22, alkaline phosphatase was 89. Urine was within normal limits, specific gravity was 1.005, and pH was 6.0. IMPRESSION AND PLAN: Ms. Bowen is a 63-year-old female, who presented to [facility] for an elective left total knee arthroplasty with Dr. Reyes. In the immediate postoperative period, the patient has no complaints. Due to her chronic medical conditions, Hospital Medicine was asked to consult. Our recommendations are as follows: 1. Status post left total knee arthroplasty. Management per Orthopedics. PT/ OT per Orthopedics. Bowel regimen per Orthopedics. Pain medications per Orthopedics. 2. Hypertension. We will continue her metoprolol. We will resume this in the a.m. 3. Anxiety. She should continue on Zoloft 200 mg p.o. daily. 4. History of coronary artery disease. She should resume aspirin 81 mg when able and continue metoprolol 25 p.o. b.i.d. as well as her atorvastatin 80 mg at bedtime. 5. High cholesterol. She should continue atorvastatin 80 mg p.o. daily. 6. Irritable bowel. She can have Lomotil q.4 hours as needed for diarrhea. 7. DVT prophylaxis per Orthopedics. 8. Code status: She is a full code. 9. Diet: She should be on a heart-healthy diet. TIME SPENT: Time spent on this consultation was approximately 45 minutes, greater than half that time was spent at the bedside reviewing events leading thus far to her hospitalization, performing physical exam, and reviewing my plan of care. I have discussed with my attending, Dr. Jerome; she is in agreement with my plan. LALA MARTIN, YORDY [id number]/[facility] #: [id number] ABRAHAM
[2019-05-27] MEDS: oxyCODONE/Acetamin 5/325 MG* TAB PO PRN ×2 (16:37→20:36)
--- NOTE | 2019-05-27 17:41 | OP ---
Operative Report - Blank - Operative Report Date of Operation: 05/27/19 Note: KAYLEE GE 1955 Date of Surgery: 05/27/19 Ping Reyes MD Wireless Manager: Ismael ROSS did help throughout the procedure with preparation of the knee, wound retraction, manipulation of the knee, and wound closure. Anesthesiologist: Tiffani Kennedy MD Anesthesia Type: Spinal Preoperative Diagnosis: Left severe degenerative osteoarthritis of the knee Postoperative Diagnosis: As above Procedure Performed: Left Total Knee Arthroplasty Tourniquet time: 42 minutes Complications: None Specimen: Bone and cartilage from the left knee joint sent to pathology. Hardware Used: Cemented Prakash and Nephew total knee hardware was used - For the femur a size 5 narrow oxinium Left legion posterior stabilized femoral component , for the tibia a size 3 left leonela II tibial baseplate, for the insert a size 9mm 3-4 posterior stabilized articular polyethylene insert, and for the patella a size 32 3-peg all poly patella. Brief History/Indication: KAYLEE GE was known in clinic and had a history of severe left knee pain and swelling. She failed conservative treatment with anti-inflammatories, pain pills, intra-articular injections and physical therapy. She elected to undergo left total knee arthroplasty due to continued pain and decreased quality of life. Radiographs showed severe end stage osteoarthritis of the knee with bone on bone contact. Informed consent was obtained from the patient. She understood the risks of surgery included but were not limited to: bleeding, infection, damage to nearby structures, intraoperative fracture, nerve palsy, failure of the hardware, early loosening, knee stiffness or loss of motion, anesthesia complications, stroke, heart attack , blood clot and . She wished to proceed. Intra-Operative Findings: Intraoperatively the patient was noted to have severe loss of cartilage in all 3 compartments of the knee. Description of the Procedure: KAYLEE GE was identified in the preanesthesia unit. Her left knee was marked as the correct operative side. Informed consent was signed and placed in the chart. The patient was taken to the operating room and placed under anesthesia without complication. A caraballo catheter was placed. A tourniquet was placed on the left thigh. The left lower extremity was prepped and draped in the usual sterile fashion. Preoperative time-out was made to correctly identify the patient, side and site. Appropriate intraoperative antibiotics were given within one hour of incision. Tourniquet was inflated. A midline incision was made and carried sharply down to the extensor mechanism. A new 10 blade was used to make a standard medial parapatellar arthrotomy. The patella was subluxed laterally. Electrocautery was used to dissect soft tissue off the superomedial tibia to the midsagittal plane. The knee was flexed up. The anterior horn of the lateral meniscus and the ACL were sharply incised. A drill was used to enter the distal femur. The intramedullary distal femoral cutting guide was pinned on the distal femur. The oscillating saw was used to make the distal femoral cut. The external rotation guide was pinned on the distal femur and the distal femur was sized to a size 5. The size 5 multi-cutting jig was pinned on the distal femur. The oscillating saw was used to make the appropriate 4 chamfer cuts. Next the PCL was completely released. The extramedullary tibial cutting guide was pinned on the proximal tibia and the oscillating saw was used to make the proximal tibial cut perpendicular to the mechanical axis of the tibia. The bone was carefully removed. The knee was brought out into full extension. The spacer block was placed and had excellent fit with the knee in full extension. The medial and lateral ligaments were well balanced. The flexion and extension gaps were well balanced. The knee was flexed up. Lamina audio visual production specialist was placed both medially and laterally. Any remaining meniscus was removed with electrocautery. Curved osteotome was used to remove any posterior osteophytes. The tibial tray and drop arline were placed and confirmed a satisfactory tibial cut. The size 5 left narrow femoral trial was impacted onto the distal femur. This trial had excellent fit and stability. The box for the posterior stabilized implant was prepared using a box cut osteotome and a reamer. Next a tibial tray trial and 9 mm insert trial was placed. The knee was taken through a range of motion and had full extension to 130 degrees of flexion. Patellofemoral tracking was satisfactory. The patella was inverted and sized to a size 32. Three peg holes were drilled through the size 32 drill guide. The trial patella was placed and the knee was taken through a range of motion. There was satisfactory patellofemoral tracking. All trials were removed. The tibia was subluxed anteriorly and sized to a size 3. The proximal tibial was prepared with a size 3 keel punch. All bony cut surfaces were irrigated with sterile saline and dried. Final implants were cemented into place starting with the tibia, followed by the femur, and last the patella. A 9 mm insert trial was placed and the knee was brought into full extension. Tourniquet was turned down and the knee was copiously irrigated with sterile saline. Electrocautery was used to obtain meticulous hemostasis. Once the cement had fully cured, the insert trial was removed. Any excess cement was removed from around the hardware and capsule. Final insert chosen was a 9 mm posterior stabilized Leonela II articular insert size 3-4. Stability of the insert was checked and noted to be stable. The extensor mechanism was closed using number 1 vicryls. The rest of the incision was closed in a layered fashion using 0 and 2-0 vicryls. The skin was closed using 3-0 nylon suture. Sterile xeroform, 4x4s and webril were used to cover the incision. [place] wrap and cold pack were used to cover the dressings. The patients anesthesia was reversed without difficulty. She was taken to the PACU in stable condition. Intended weight-bearing will be as tolerated.
[2019-05-27] MEDS: Clindamycin 600 MG IVPREMIX(* 600 MG/50 ML SDV IV SCH (17:44)
[2019-05-27] MEDS: Docusate CAP* 100 MG PO SCH (20:36)
[2019-05-27] MEDS: Magnesium Hydroxide LIQ* 30 ML UDC PO SCH (20:36)
[2019-05-28] MEDS: oxyCODONE TAB* 5 MG TAB PO PRN ×5 (00:15→20:05)
[2019-05-28] MEDS: Morphine 4 MG/ML VIAL (1 ml) 4 MG/ML VIAL IV PRN ×2 (00:20→18:02)
[2019-05-28] MEDS: Lactated Ringers 1000 ML Bag* 1,000 ML IV SCH ×2 (00:25→09:55)
[2019-05-28] MEDS: Clindamycin 600 MG IVPREMIX(* 600 MG/50 ML SDV IV SCH ×2 (02:22→09:51)
[2019-05-28] MEDS: oxyCODONE/Acetamin 5/325 MG* TAB PO PRN ×3 (03:58→13:52)
[2019-05-28] MEDS: Cyclobenzaprine TAB* 10 MG PO PRN ×3 (04:34→21:42)
[2019-05-28] MEDS: Magnesium Hydroxide LIQ* 30 ML UDC PO SCH ×2 (07:35→20:07)
[2019-05-28] MEDS: Vitamin THERAPEUTIC TAB PO SCH (07:36)
[2019-05-28] MEDS: Docusate CAP* 100 MG PO SCH ×2 (07:36→20:05)
[2019-05-28] MEDS: Apixaban* 2.5 MG TAB PO SCH ×2 (07:36→20:05)
[2019-05-28 07:42] LABS: Hematocrit 32 % (35-47); Mean Platelet Volume 7.8 fL (7.4-10.4); Platelet Count 150 10^3/uL (150-450)
[2019-05-28 07:59] LABS: BUN/Creatinine Ratio 16.5 (8-20); EGFR African American 88.7 (>60); EGFR Non-African American 73.3 (>60); Potassium 3.8 mmol/L (3.5-5.0)
[2019-05-28] MEDS: Ondansetron INJ* 2 MG/ML VIAL IV PRN (09:51)
[2019-05-28] MEDS ORDERED: Metoprolol Tartrate TAB* 25 MG PO SCH (10:00)
--- NOTE | 2019-05-28 10:29 | PN ---
Progress Note - Progress Note Date of Service: 05/28/19 SOAP: Subjective: []Patient seen OOB in chair, nauseate and having moderate to severe left knee pain this am. She has needed Morphine. She feels the meds coinciding with her am therapy caused the nausea. She does not feel ready to go home. Objective: [] Vital Signs Temp 99.5 F 05/28/19 07:50 Pulse 63 05/28/19 07:50 Resp 20 05/28/19 09:44 BP 100/57 05/28/19 07:50 Pulse Ox 99 05/28/19 07:50 Intake & Output 05/27/19 05/28/19 05/28/19 18:59 06:59 18:59 Intake Total 1385 1544 360 Output Total 575 1450 Balance 810 94 360 Weight 198 lb Intake: IV Fluids 1325 944 LR 944 Lactated Ringer's 1325 Oral 60 600 360 Output: Lopez 425 1450 Estimated Blood Loss 150 Other: # Bowel Movements 0 Laboratory Results - last 24 hr 05/28/19 05/28/19 07:13 07:14 Hgb 11.0 L Hct 32 L Plt Count 150 MPV 7.8 Sodium 134 L Potassium 3.8 Chloride 102 Carbon Dioxide 26 Anion Gap 6 BUN 13 Creatinine 0.79 Est GFR ( Amer) 88.7 Est GFR (Non-Af Amer) 73.3 BUN/Creatinine Ratio 16.5 Glucose 159 H Calcium 9.0 Left knee dressing changed this am by Dr. Reyes calf NT and soft +Df left ankle sensation and circulation intact distally Assessment: []s/p LTK POD #1 Plan: []Narcotics may be culprit of nausea but having moderate knee pain, may need to decrease narcotics if nausea continues PT/Ot as tolerated WBAT LLE Eliquis for DVT prophy Home over weekend with sister who lives at [place] when stable
[2019-05-28] MEDS: Sertraline* 100 MG TAB PO SCH (10:31)
[2019-05-28] MEDS: Famotidine TAB* 20 MG PO SCH (10:31)
[2019-05-28] MEDS: Metoprolol Tartrate TAB* 25 MG PO SCH ×2 (15:46→21:36)
--- NOTE | 2019-05-28 16:51 | PN ---
Subjective Date of Service: 05/28/19 Interval History: Resting in bed on assessment. Reports pain in left knee. Reports pain is occasionally uncontrolled, but is looking forward to getting up with PT as it helps with her pain. Reports she has been told her BP is low, but she denies symptoms such as dizziness when changing position. Denies calf pain, numbness/ tingling, chest pain, sob, nause, vomiting. Objective Active Medications: Acetaminophen (Tylenol Tab*) 650 mg PO Q8H PRN PRN Reason: PAIN OR TEMPERATURE Anastrozole (Arimidex (Nf)) 1 mg PO BEDTIME [facility] Apixaban (Eliquis*) 2.5 mg PO BID [facility] Last Admin: 05/28/19 07:36 Dose: 2.5 mg Bisacodyl (Dulcolax Supp*) 10 mg OR DAILY PRN PRN Reason: constipation Cyclobenzaprine HCl (Flexeril Tab*) 5 mg PO TID PRN PRN Reason: SPASMS Last Admin: 05/28/19 13:53 Dose: 5 mg Diphenhydramine HCl (Benadryl Iv*) 25 mg IV Q6H PRN PRN Reason: itching Docusate Sodium (Colace Cap*) 100 mg PO BID [facility] Last Admin: 05/28/19 07:36 Dose: 100 mg Famotidine (Pepcid Tab*) 40 mg PO QAM [facility] Last Admin: 05/28/19 10:31 Dose: 40 mg Lactated Ringer's (Lactated Ringers 1000 Ml Bag*) 1,000 mls @ 100 mls/hr IV PER RATE [facility] Last Admin: 05/28/19 09:55 Dose: 100 mls/hr Lactulose (Lactulose*) 30 ml PO Q6H PRN PRN Reason: constipation Magnesium Hydroxide (Milk Of Magnesia Liq*) 30 ml PO BID [facility] Last Admin: 05/28/19 07:35 Dose: 30 ml Magnesium Hydroxide (Milk Of Magnesia Liq*) 30 ml PO Q6H PRN PRN Reason: constipation Metoprolol Tartrate (Lopressor Tab*) 25 mg PO BID [facility] Last Admin: 05/28/19 15:46 Dose: Not Given Morphine Sulfate (Morphine 4 Mg/Ml Vial (1 Ml)) 2 mg IV Q2H PRN PRN Reason: PAIN Last Admin: 05/28/19 00:20 Dose: 2 mg Multivitamins (Theragran Tab*) 1 tab PO DAILY [facility] Last Admin: 05/28/19 07:36 Dose: 1 tab Ondansetron HCl (Zofran Inj*) 4 mg IV Q6H PRN PRN Reason: nausea Last Admin: 05/28/19 09:51 Dose: 4 mg Oxycodone HCl (Roxycodone Tab*) 10 mg PO Q4H PRN PRN Reason: PAIN - SEVERE Last Admin: 05/28/19 15:20 Dose: 10 mg Oxycodone/Acetaminophen (Percocet 5/325 Tab*) 1 tab PO Q4H PRN PRN Reason: PAIN Oxycodone/Acetaminophen (Percocet 5/325 Tab*) 2 tab PO Q4H PRN PRN Reason: PAIN Last Admin: 05/28/19 13:52 Dose: 1 tab Sertraline HCl (Zoloft*) 200 mg PO QAM [facility] Last Admin: 05/28/19 10:31 Dose: 200 mg Vital Signs - 8 hr 05/28/19 05/28/19 05/28/19 09:44 10:32 11:11 Temperature 97.9 F Pulse Rate 58 Respiratory 20 16 18 Rate Blood Pressure 106/62 (mmHg) O2 Sat by Pulse 99 Oximetry 05/28/19 05/28/19 05/28/19 12:10 13:52 13:53 Temperature Pulse Rate Respiratory 18 16 16 Rate Blood Pressure (mmHg) O2 Sat by Pulse Oximetry 05/28/19 05/28/19 05/28/19 15:20 15:29 16:00 Temperature 99.5 F Pulse Rate 57 Respiratory 20 16 16 Rate Blood Pressure 116/63 (mmHg) O2 Sat by Pulse 100 Oximetry Oxygen Devices in Use Now: None Appearance: Comfortable, NAD Eyes: No Scleral Icterus Ears/Nose/Mouth/Throat: Clear Oropharnyx, Mucous Membranes Moist Neck: NL Appearance and Movements; NL JVP Respiratory: Symmetrical Chest Expansion and Respiratory Effort, Clear to Auscultation Cardiovascular: NL Sounds; No Murmurs; No JVD, RRR, No Edema Abdominal: NL Sounds; No Tenderness; No Distention Lymphatic: No Cervical Adenopathy Extremities: No Clubbing, Cyanosis Skin: No Rash or Ulcers Neurological: Alert and Oriented x 3 Nutrition: Taking PO's Result Diagrams: 05/28/19 07:13 05/28/19 07:14 Additional Lab and Data: Laboratory Results - last 24 hr 05/28/19 05/28/19 07:13 07:14 Hgb 11.0 L Hct 32 L Plt Count 150 MPV 7.8 Sodium 134 L Potassium 3.8 Chloride 102 Carbon Dioxide 26 Anion Gap 6 BUN 13 Creatinine 0.79 Est GFR ( Amer) 88.7 Est GFR (Non-Af Amer) 73.3 BUN/Creatinine Ratio 16.5 Glucose 159 H Calcium 9.0 Microbiology and Other Data: . Assess/Plan/Problems-Billing Assessment: 63 yr old with pmh of SC, CAD, Anxiety/Depression, Hx of Breast Cancer, HTN, Asthma, IBS; who presented to [facility] for an elective left total knee replacement - Patient Problems (1) Status post total left knee replacement Comment: - POD 1 - Management per ortho (2) HTN (hypertension) Comment: - Cont Metoprolol with parameters (3) Anxiety Comment: - Cont Zoloft (4) CAD (coronary artery disease) Comment: - Resume ASA when able - Cont Beta Alberto and Statin (5) Hyperlipidemia Comment: - Cont statin (6) IBS (irritable bowel syndrome) Comment: - Lomotil as needed for diarrhea (7) History of breast cancer Comment: - Cont Arimidex (8) DVT prophylaxis Comment: - Eliquis per ortho Status and Disposition: Thank you for allowing us to assist in the care of this patient. We will follow along with you while she is admitted. Attending: Pratibha Tavera
[2019-05-28] MEDS: Atorvastatin* 80 MG TAB PO SCH (18:02)
[2019-05-28] MEDS: CMCS:Anastrozole (NF) 1 MG TAB PO SCH (21:36)
[2019-05-29] MEDS: oxyCODONE TAB* 5 MG TAB PO PRN ×3 (00:13→23:45)
[2019-05-29] MEDS: Morphine 4 MG/ML VIAL (1 ml) 4 MG/ML VIAL IV PRN ×3 (01:45→23:45)
[2019-05-29 05:49] LABS: Hematocrit 31 % (35-47); Hemoglobin 10.4 g/dL (12.0-16.0); Mean Platelet Volume 7.6 fL (7.4-10.4); Platelet Count 137 10^3/uL (150-450)
[2019-05-29] MEDS: Cyclobenzaprine TAB* 10 MG PO PRN (07:20)
[2019-05-29] MEDS: Sertraline* 100 MG TAB PO SCH (07:20)
[2019-05-29] MEDS: Metoprolol Tartrate TAB* 25 MG PO SCH ×2 (07:20→20:28)
[2019-05-29] MEDS: Vitamin THERAPEUTIC TAB PO SCH (07:20)
[2019-05-29] MEDS: Magnesium Hydroxide LIQ* 30 ML UDC PO SCH ×3 (07:20→22:03)
[2019-05-29] MEDS: Docusate CAP* 100 MG PO SCH ×2 (07:20→20:29)
[2019-05-29] MEDS: Apixaban* 2.5 MG TAB PO SCH ×2 (07:20→20:28)
[2019-05-29] MEDS: Famotidine TAB* 20 MG PO SCH (07:20)
[2019-05-29] MEDS: Ondansetron INJ* 2 MG/ML VIAL IV PRN (08:39)
--- NOTE | 2019-05-29 09:07 | PN ---
Progress Note - Progress Note Date of Service: 05/29/19 SOAP: Subjective: [[]Patient seen in bed this am, nauseate and having moderate to severe left knee pain this am. She has needed Morphine. She does not feel ready to go home as her pain and nausea are not yet under control. She denies any chest pain , SOB. Objective: [] Left knee dressing changed this am incision is c/d/i. No drainage calf NT and soft +Df left ankle sensation and circulation intact distally Vital Signs Temp 98.8 F 05/29/19 07:59 Pulse 87 05/29/19 07:59 Resp 16 05/29/19 08:39 BP 124/68 05/29/19 07:59 Pulse Ox 100 05/29/19 07:59 Intake & Output 05/28/19 05/29/19 05/29/19 18:59 06:59 18:59 Intake Total 580 390 550 Output Total 325 300 Balance 255 90 550 Intake: Oral 580 390 550 Output: Urine 325 300 Other: Estimated Void Large Medium # Bowel Movements 0 # Voids 1 Assessment: []s/p LTK POD #2 Plan: The pt continues to have nausea today. Scopolamine patch ordered PT/Ot as tolerated WBAT LLE Eliquis for DVT prophy Will continue with narcotics today, should pain not come under control we will consider a long acting narcotic Home over weekend with sister who lives at [place] when stable
[2019-05-29] MEDS: oxyCODONE/Acetamin 5/325 MG* TAB PO PRN ×3 (09:46→20:29)
[2019-05-29] MEDS ORDERED: Scopolamine 1.5 mg* PATCH TRANSDERM SCH (10:00)
[2019-05-29] MEDS: Morphine TAB Extended Release (*) 15 MG TAB.ER PO SCH ×2 (10:45→22:00)
[2019-05-29] MEDS: Atorvastatin* 80 MG TAB PO SCH (17:06)
[2019-05-29] MEDS: CMCS:Anastrozole (NF) 1 MG TAB PO SCH (22:01)
[2019-05-30] MEDS: oxyCODONE/Acetamin 5/325 MG* TAB PO PRN ×2 (04:23→14:41)
[2019-05-30 05:27] LABS: Hematocrit 31 % (35-47); Hemoglobin 10.6 g/dL (12.0-16.0); Mean Platelet Volume 7.7 fL (7.4-10.4); Platelet Count 143 10^3/uL (150-450)
[2019-05-30] MEDS ORDERED: Scopolamine PATCH Remove* 1 NOTE MISC PATCH OFF SCH (09:00)
[2019-05-30] MEDS ORDERED: Scopolamine 1.5 mg* PATCH TRANSDERM SCH (09:00)
[2019-05-30] MEDS: Morphine TAB Extended Release (*) 15 MG TAB.ER PO SCH (10:07)
[2019-05-30] MEDS: Famotidine TAB* 20 MG PO SCH (10:07)
[2019-05-30] MEDS: Metoprolol Tartrate TAB* 25 MG PO SCH (10:08)
[2019-05-30] MEDS: Vitamin THERAPEUTIC TAB PO SCH (10:08)
[2019-05-30] MEDS: Apixaban* 2.5 MG TAB PO SCH (10:08)
[2019-05-30] MEDS: Docusate CAP* 100 MG PO SCH (10:08)
[2019-05-30] MEDS: Magnesium Hydroxide LIQ* 30 ML UDC PO SCH (10:09)
--- NOTE | 2019-05-30 11:00 | PN ---
Progress Note - Progress Note Date of Service: 05/30/19 SOAP: Subjective: Patient seen in bed this am, nausea and pain have been improving. She states that the long acting has helped with the pain. She feels ready to go home as her pain and nausea have come under control. She denies any chest pain, SOB. Objective: [] Left knee dressing c/d/i calf NT and soft +Df left ankle sensation and circulation intact distally Vital Signs Temp 99.4 F 05/30/19 08:06 Pulse 88 05/30/19 08:06 Resp 17 05/30/19 10:07 BP 106/64 05/30/19 08:06 Pulse Ox 95 05/30/19 08:06 Intake & Output 05/29/19 05/30/19 05/30/19 18:59 06:59 18:59 Intake Total 1360 360 360 Output Total 900 900 Balance 1360 -540 -540 Intake: Oral 1360 360 360 Output: Urine 900 900 Other: Estimated Void Medium # Voids 1 Assessment: []s/p LTK POD #3 Plan: Scopolamine patch has seemed to help PT/Ot as tolerated WBAT LLE Eliquis for DVT prophy Will continue with narcotics Home today with sister who lives at [place] when stable
--- NOTE | 2019-05-30 11:08 | DS ---
Orthopedic Discharge Summary - Discharge Summary Date of Admission:05/27/19 Date of Discharge: 05/30/2019 Date of Surgery: 05/27/2019 Attending Orthopedic Provider: Dr. Reyes Pre-operative Diagnosis: Left knee osteoarthrits Operative Procedure: Left total knee arthroplasty Disposition of Patient: Good, gerald kumar Condition of Patient: Good History: KAYLEE GE is a 63 year old F with years of increasingly severe left knee pain. Patient has failed conservative management and has elected to undergo a left total knee replacement Hospital Course: KAYLEE was admitted to [facility] on 05/27/19. Patient underwent a left total knee arthroplasty without complication followed by a brief recovery in PACU and transfer to the Short Stay Surgical Unit in stable condition. Our hospitalist service, physical therapy and occupational therapy also participated in this patients care. Post-op day 1: patient was alert and in no acute distress. Dressing was clean, dry and intact. Operative extremity dorsiflexion and plantarflexion intact, sensation intact to light touch distally, DP2+. Post-op day two: dressing was changed, incision was clean , dry and intact. She had nausea and pain was not controlled. A long acting MS contin 15mg bid was added. POD 3: Scopolomine patch was ordered. The pt improved with nausea and pain. Patient was deemed to be medically and orthopedically stable for discharge. Physical therapy goals were met. Home Medications Medication Instructions Recorded Confirmed Type Acetaminophen [Arthritis Pain 1,300 mg PO BID 05/03/19 05/27/19 History Relief] Albuterol HFA INHALER* [Ventolin 2 puff INH DAILY PRN 05/03/19 05/27/19 History HFA Inhaler*] Anastrozole [Arimidex] 1 tab PO BEDTIME 05/03/19 05/28/19 History Aspirin 81 mg PO BEDTIME 05/03/19 05/27/19 History Atorvastatin* [Lipitor*] 80 mg PO 1700 05/03/19 05/27/19 History Biotin 1 mg PO QAM 05/03/19 05/27/19 History Calcium Carb/Vitamin D3/Vit K1 1 tab PO BID 05/03/19 05/27/19 History [Calcium + D Soft Chewable Tab] Famotidine 40 mg PO QAM 05/03/19 05/27/19 History Fluticasone Propionate [Flonase 1 spray INH BEDTIME 05/03/19 05/27/19 History Allergy Relief] Lactase [Dairy Digest] 1 tab PO QAM 05/03/19 05/27/19 History Loratadine [Claritin] 10 mg PO QAM 05/03/19 05/27/19 History Metoprolol Tartrate [Lopressor] 25 mg PO BID 05/03/19 05/27/19 History Sertraline HCl [Zoloft] 200 mg PO QAM 05/03/19 05/27/19 History Trazodone HCl 75 mg PO QPM PRN 05/03/19 05/27/19 History Diphenoxylate HCl/Atropine 1 tab PO QID PRN 05/14/19 05/27/19 History [Lomotil] Discharge Instructions following Orthopedic Surgery: DC to [facility] Activity: * Weight Bearing as tolerated * Continue physical therapy and occupational therapy exercises as shown Wound care: * OK to shower on post-op day 3, no bathing, swimming, or submerging wound. * Use gentle soap, pat dry. Cover with gauze, CIRILO wrap or tape. * Visiting home nurse to do wound checks. Call Orthopedic office for: * Increased drainage * Redness * Increased pain * Fever Go to ER with shortness of breath or chest pain. Diet: * Regular diet * Increase fluids and fiber to prevent constipation. * Continue to use stool softeners, call office if no bowel motion within 48 hours. Medications See Home Medication List in your packet for medications that you should take after discharge. DVT Prophylaxis: Eliquis Dosin.5 mg, 1 tab every 12 hours x 30 days Pain Control: Percocet Dosin/325 mg 1-2 tabs by mouth every 4-6 hours as needed for pain. Maximum of 10 tabs per day. MS Contin 15 mg 1 tab every 12 hours as needed for pain. Maximum of 2 tabs per day. Please note that Percocet contains Tylenol (acetaminophen). Maximum daily dose of Tylenol is 4000 mg from all sources. Antibiotics are required prior to any dental work. FOLLOW UP: Follow up with Dr. Reyes Within 10-14 days, call for appointment Please call our office with any questions or concerns ([phone])
[2019-05-30 12:22] VITALS: BP 113/67
== END 2019-05-30 15:10 | disposition home or self-care (01) | DRG 302 ==
LOC: AA 06:46 → SSU 14:41
PROVIDERS: ADMIT Orthopaedic Surgery Adult Reconstructive Orthopaedic Surgery; ATTEND Orthopaedic Surgery Adult Reconstructive Orthopaedic Surgery
PROC: 0SRD069 Replacement of Left Knee Joint with Oxidized Zirconium on Polyethylene Synthetic Substitute, Cemented, Open Approach (ICD-10-PCS; principal; 2019-05-27 09:30)
DX: M17.12 Unilateral primary osteoarthritis, left knee (principal); R11.0 Nausea; I25.10 Atherosclerotic heart disease of native coronary artery without angina pectoris; F41.9 Anxiety disorder, unspecified; F32.9 Major depressive disorder, single episode, unspecified; I10 Essential (primary) hypertension; J45.909 Unspecified asthma, uncomplicated; K58.9 Irritable bowel syndrome, unspecified; M25.462 Effusion, left knee; E78.5 Hyperlipidemia, unspecified; C50.912 Malignant neoplasm of unspecified site of left female breast; G43.909 Migraine, unspecified, not intractable, without status migrainosus; M25.762 Osteophyte, left knee; Z79.82 Long term (current) use of aspirin; I25.2 Old myocardial infarction; Z95.5 Presence of coronary angioplasty implant and graft; Z88.0 Allergy status to penicillin; Z91.011 Allergy to milk products; Z82.3 Family history of stroke; Z82.0 Family history of epilepsy and other diseases of the nervous system; Z80.0 Family history of malignant neoplasm of digestive organs; Z80.3 Family history of malignant neoplasm of breast; Z80.8 Family history of malignant neoplasm of other organs or systems; Z82.49 Family history of ischemic heart disease and other diseases of the circulatory system
CPT/HCPCS: 36415; 80048; 85014; 85018; 85049; 88305; 88311; A9270-GY; C1776; J1100; J1885; J2250; J2270; J2405; J2704; J2795; J3010; J3490